=== PATIENT | female | born 1945 | race Caucasian/White ===

== ENCOUNTER 2017-04-11 02:45 | Emergency (ER) | payer MEDICARE, OTHER ==
[~2017-04-11] VITALS: Ht 165.1 cm; Wt 55.9 kg
[2017-04-11] MEDS ORDERED: UNABLE TO RECONCILE (03:11)
[2017-04-11 03:29] LABS: URINE BILIRUBIN - DIPSTICK NEGATIVE (NEGATIVE); URINE BLOOD DIPSTICK SMALL (NEGATIVE); URINE CLARITY CLEAR; URINE COLOR YELLOW; URINE GLUCOSE - DIPSTICK NEGATIVE (NEGATIVE); URINE KETONE NEGATIVE (NEGATIVE); URINE LEUK ESTERASE NEGATIVE (NEGATIVE); URINE NITRITE - DIPSTICK NEGATIVE (Negative); URINE PROTEIN - DIPSTICK NEGATIVE (NEG-TRACE); URINE UROBILINOGEN - DIPSTICK 0.2 E.U./dL (0.2)
[2017-04-11 03:41] LABS: HEMATOCRIT 36.9 % (37.0-47.0); HEMOGLOBIN 12.9 g/dl (12.0-16.0); IMMATURE GRANULOCYTES 0.4 % (0.0-1.0); MEAN CELL VOLUME 91.3 fL CALC (80.0-100.0); MEAN CORPUSCULAR HGB 31.9 pG CALC (26.0-32.0); NEUT# 7.85 thou/uL (2.00-7.15); RED BLOOD COUNT 4.04 mill/uL (4.20-5.60); RED CELL DISTRI WIDTH 12.6 % (11.5-15.5)
[2017-04-11 03:44] LABS: ALBUMIN 4.3 g/dL (3.2-5.0); ALKALINE PHOSPHATASE 103 u/l (38-126); ANION GAP 14 (6-22 (CALC)); BILIRUBIN, TOTAL 0.5 mg/dL (0.0-1.4); BUN 14 mg/dL (8-23); BUN/CREATININE RATIO 20 (12-20 (CALC)); CALCIUM 9.7 mg/dL (8.4-10.2); CARBON DIOXIDE 29 mmol/l (22-30); CHLORIDE 96 mmol/l (95-108); CREATININE 0.7 mg/dL (0.5-1.0); GFR > 60 ML/MIN (>=60 (CALC)); GFR FOR AFR.AMER. > 60 ML/MIN (>=60 (CALC)); GLUCOSE 102 mg/dL (82-115); POTASSIUM 3.6 mmol/l (3.5-5.1); SGOT/AST 22 u/l (9-36); SGPT/ALT 36 u/l (11-66); SODIUM 136 mmol/l (137-146); TOTAL PROTEIN 7.7 g/dL (6.3-8.2)
[2017-04-11 03:45] LABS: URINE WBC 0-2 WBC/hpf (0-5)
[2017-04-11 03:56] LABS: MYOGLOBIN 31 ng/mL (0 - 62)
[2017-04-11] MEDS ORDERED: OXYCODONE5 MG PO (07:07)
[2017-04-11 07:28] VITALS: BP 189/77
== END 2017-04-11 07:29 | disposition home or self-care (01) ==
LOC: ED 02:45
PROVIDERS: Emergency Medicine
DX: G89.29 Other chronic pain (principal); M54.9 Dorsalgia, unspecified; I10 Essential (primary) hypertension; M48.54XA Collapsed vertebra, not elsewhere classified, thoracic region, initial encounter for fracture; Z86.14 Personal history of Methicillin resistant Staphylococcus aureus infection

== ENCOUNTER 2017-04-17 12:31 | Inpatient (IN) | payer MEDICARE, OTHER ==
[~2017-04-17] VITALS: Ht 157.5 cm; Wt 52.0 kg
[~2017-04-17 12:31] MED LIST: OXYCODONE5 MG PO; UNABLE TO RECONCILE
[2017-04-17 13:14] LABS: HEMATOCRIT 32.7 % (37.0-47.0); HEMOGLOBIN 11.7 g/dl (12.0-16.0); IMMATURE GRANULOCYTES 0.3 % (0.0-1.0); MEAN CELL VOLUME 89.1 fL CALC (80.0-100.0); MEAN CORPUSCULAR HGB 31.9 pG CALC (26.0-32.0); MEAN CORPUSCULAR HGB CONC 35.8 g/L CALC (32.0-36.0); NEUT# 7.26 thou/uL (2.00-7.15); RED BLOOD COUNT 3.67 mill/uL (4.20-5.60); RED CELL DISTRI WIDTH 12.2 % (11.5-15.5)
[2017-04-17 13:25] LABS: ALKALINE PHOSPHATASE 91 u/l (38-126); ANION GAP 13 (6-22 (CALC)); BILIRUBIN, TOTAL 0.6 mg/dL (0.0-1.4); BUN 11 mg/dL (8-23); BUN/CREATININE RATIO 18 (12-20 (CALC)); CALCIUM 9.3 mg/dL (8.4-10.2); CARBON DIOXIDE 29 mmol/l (22-30); CHLORIDE 87 mmol/l (95-108); CREATININE 0.6 mg/dL (0.5-1.0); GFR > 60 ML/MIN (>=60 (CALC)); GFR FOR AFR.AMER. > 60 ML/MIN (>=60 (CALC)); GLUCOSE 106 mg/dL (82-115); MAGNESIUM 1.8 mg/dL (1.6-2.3); SGOT/AST 21 u/l (9-36); SGPT/ALT 30 u/l (11-66); SODIUM 125 mmol/l (137-146); TOTAL PROTEIN 7.1 g/dL (6.3-8.2)
[2017-04-17 13:39] LABS: MYOGLOBIN 38 ng/mL (0 - 62)
[2017-04-17 17:07] VITALS: BP 162/52
[2017-04-17 19:00] VITALS: BP 152/59
[2017-04-18 05:43] VITALS: BP 165/69
[2017-04-18 05:54] LABS: HEMATOCRIT 29.3 % (37.0-47.0); HEMOGLOBIN 10.4 g/dl (12.0-16.0); IMMATURE GRANULOCYTES 0.4 % (0.0-1.0); MEAN CELL VOLUME 88.8 fL CALC (80.0-100.0); MEAN CORPUSCULAR HGB 31.5 pG CALC (26.0-32.0); MEAN CORPUSCULAR HGB CONC 35.5 g/L CALC (32.0-36.0); NEUT# 5.78 thou/uL (2.00-7.15); RED BLOOD COUNT 3.3 mill/uL (4.20-5.60)
[2017-04-18 06:04] LABS: ANION GAP 11 (6-22 (CALC)); BUN 10 mg/dL (8-23); BUN/CREATININE RATIO 17 (12-20 (CALC)); CALCIUM 8.6 mg/dL (8.4-10.2); CARBON DIOXIDE 27 mmol/l (22-30); CHLORIDE 93 mmol/l (95-108); CREATININE 0.6 mg/dL (0.5-1.0); GFR > 60 ML/MIN (>=60 (CALC)); GFR FOR AFR.AMER. > 60 ML/MIN (>=60 (CALC)); GLUCOSE 96 mg/dL (82-115); MAGNESIUM 1.7 mg/dL (1.6-2.3); POTASSIUM 3.3 mmol/l (3.5-5.1); SODIUM 128 mmol/l (137-146)
[2017-04-18 07:44] VITALS: BP 179/82
[2017-04-18] MEDS ORDERED: VENLAFAXINE HCL75 M1 PO (09:55)
[2017-04-18] MEDS ORDERED: METOPROLOL TART50 MG PO (09:55)
[2017-04-18] MEDS ORDERED: LABETALOL100 MG PO (09:56)
[2017-04-18] MEDS ORDERED: LYRICA75 MG PO (09:57)
[2017-04-18] MEDS ORDERED: BUSPIRONE HCL30 MG PO (09:57)
[2017-04-18] MEDS ORDERED: DOXYCYCLINE HY100 M1 PO (09:59)
[2017-04-18] MEDS ORDERED: LISINOP/HCTZ1 TA1 PO (10:00)
[2017-04-18] MEDS ORDERED: KLOR-CON 1010 MEQ PO (10:01)
[2017-04-18] MEDS ORDERED: DILT-XR180 MG PO (10:02)
[2017-04-18] MEDS ORDERED: FERR SULFATE325 MG PO (10:02)
[2017-04-18 11:38] VITALS: BP 152/78
[2017-04-18] MEDS ORDERED: OXYCODONE HCL15 MG PO (14:24)
[2017-04-18 15:00] VITALS: BP 190/84
[2017-04-18 16:15] VITALS: BP 187/84
[2017-04-18 16:52] LABS: URINE BILIRUBIN - DIPSTICK NEGATIVE (NEGATIVE); URINE BLOOD DIPSTICK TRACE-INTACT (NEGATIVE); URINE CLARITY CLEAR; URINE COLOR YELLOW; URINE GLUCOSE - DIPSTICK NEGATIVE (NEGATIVE); URINE KETONE NEGATIVE (NEGATIVE); URINE LEUK ESTERASE NEGATIVE (Negative); URINE NITRITE - DIPSTICK NEGATIVE (Negative); URINE PH 7.5 (4.5-8.0); URINE PROTEIN - DIPSTICK NEGATIVE (NEG-TRACE); URINE SPECIFIC GRAVITY 1.015; URINE UROBILINOGEN - DIPSTICK 0.2 E.U./dL (0.2)
[2017-04-18 19:58] VITALS: BP 183/73
[2017-04-19] VITALS (7 sets, daily range): BP systolic 135–188; BP diastolic 68–91
[2017-04-19 05:53] LABS: ALBUMIN 3.2 g/dL (3.2-5.0); BUN 7 mg/dL (8-23); CALCIUM 8.8 mg/dL (8.4-10.2); CARBON DIOXIDE 28 mmol/l (22-30); CHLORIDE 92 mmol/l (95-108); CREATININE 0.4 mg/dL (0.5-1.0); GFR > 60 ML/MIN (>=60 (CALC)); GFR FOR AFR.AMER. > 60 ML/MIN (>=60 (CALC)); GLUCOSE 97 mg/dL (82-115); POTASSIUM 3.2 mmol/l (3.5-5.1); SODIUM 128 mmol/l (137-146)
[2017-04-19] MEDS ORDERED: LISINOPRIL20 M1 PO (12:57)
[2017-04-19] MEDS ORDERED: NORVASC10 M1 PO (12:59)
[2017-04-19] MEDS ORDERED: KLOR-CON 1010 MEQ PO (13:17)
[2017-04-19] MEDS ORDERED: LASIX 20 MG TAB20 MG PO (13:17)
== END 2017-04-19 16:40 | DRG 543 ==
LOC: ED 12:31 → ED-I 15:04 → ED 16:14 → MS2 16:15
PROVIDERS: Emergency Medicine; Internal Medicine Nephrology; Nurse Practitioner Family; ADMIT Internal Medicine; ATTEND Internal Medicine
DX: M80.88XA Other osteoporosis with current pathological fracture, vertebra(e), initial encounter for fracture (principal); E22.2 Syndrome of inappropriate secretion of antidiuretic hormone; D63.8 Anemia in other chronic diseases classified elsewhere; E83.39 Other disorders of phosphorus metabolism; I10 Essential (primary) hypertension; E87.6 Hypokalemia; F17.210 Nicotine dependence, cigarettes, uncomplicated; F32.9 Major depressive disorder, single episode, unspecified; F41.9 Anxiety disorder, unspecified; Z91.14 Patient's other noncompliance with medication regimen
CPT/HCPCS: G0378; J1756

== ENCOUNTER 2017-04-23 19:54 | Emergency (ER) | payer MEDICARE, OTHER ==
[~2017-04-23] VITALS: Ht 157.5 cm; Wt 52.7 kg
[~2017-04-23 19:54] MED LIST changes: +BUSPIRONE HCL30 MG PO; +DILT-XR180 MG PO; +DOXYCYCLINE HY100 M1 PO; +FERR SULFATE325 MG PO; +KLOR-CON 1010 MEQ PO; +LABETALOL100 MG PO; +LASIX 20 MG TAB20 MG PO; +LISINOP/HCTZ1 TA1 PO; +LISINOPRIL20 M1 PO; +LYRICA75 MG PO; +METOPROLOL TART50 MG PO; +NORVASC10 M1 PO; +OXYCODONE HCL15 MG PO; +VENLAFAXINE HCL75 M1 PO
[2017-04-23 21:24] LABS: HEMATOCRIT 33.2 % (37.0-47.0); HEMOGLOBIN 11.8 g/dl (12.0-16.0); IMMATURE GRANULOCYTES 0.6 % (0.0-1.0); MEAN CELL VOLUME 88.3 fL CALC (80.0-100.0); MEAN CORPUSCULAR HGB 31.4 pG CALC (26.0-32.0); MEAN CORPUSCULAR HGB CONC 35.5 g/L CALC (32.0-36.0); NEUT# 5.44 thou/uL (2.00-7.15); RED BLOOD COUNT 3.76 mill/uL (4.20-5.60); RED CELL DISTRI WIDTH 12.3 % (11.5-15.5)
[2017-04-23 21:36] LABS: ALBUMIN 3.2 g/dL (3.2-5.0); ALKALINE PHOSPHATASE 93 u/l (38-126); ANION GAP 12 (6-22 (CALC)); BILIRUBIN, TOTAL 0.4 mg/dL (0.0-1.4); BUN 15 mg/dL (8-23); BUN/CREATININE RATIO 29 (12-20 (CALC)); CALCIUM 9.1 mg/dL (8.4-10.2); CARBON DIOXIDE 26 mmol/l (22-30); CHLORIDE 93 mmol/l (95-108); CREATININE 0.5 mg/dL (0.5-1.0); GFR > 60 ML/MIN (>=60 (CALC)); GFR FOR AFR.AMER. > 60 ML/MIN (>=60 (CALC)); GLUCOSE 95 mg/dL (82-115); POTASSIUM 3.6 mmol/l (3.5-5.1); SGOT/AST 16 u/l (9-36); SGPT/ALT 29 u/l (11-66); SODIUM 128 mmol/l (137-146); TOTAL PROTEIN 5.7 g/dL (6.3-8.2)
[2017-04-23 22:42] LABS: URINE BILIRUBIN - DIPSTICK NEGATIVE (NEGATIVE); URINE BLOOD DIPSTICK TRACE-INTACT (NEGATIVE); URINE CLARITY CLEAR; URINE COLOR YELLOW; URINE GLUCOSE - DIPSTICK NEGATIVE (NEGATIVE); URINE KETONE NEGATIVE (NEGATIVE); URINE LEUK ESTERASE NEGATIVE (NEGATIVE); URINE NITRITE - DIPSTICK NEGATIVE (Negative); URINE PH 6.5 (4.5-8.0); URINE PROTEIN - DIPSTICK TRACE mg/dL (NEG-TRACE); URINE UROBILINOGEN - DIPSTICK 0.2 E.U./dL (0.2)
[2017-04-24 00:55] VITALS: BP 165/85
== END 2017-04-24 04:31 ==
LOC: ED 19:54
PROVIDERS: Emergency Medicine
DX: M48.54XA Collapsed vertebra, not elsewhere classified, thoracic region, initial encounter for fracture (principal); M54.5 Low back pain; M54.6 Pain in thoracic spine

== ENCOUNTER 2017-05-25 10:49 | Emergency (ER) | payer MEDICARE, OTHER ==
[~2017-05-25] VITALS: Ht 157.5 cm; Wt 63.6 kg
[2017-05-25 11:40] LABS: HEMATOCRIT 31.4 % (37.0-47.0); HEMOGLOBIN 10.7 g/dl (12.0-16.0); IMMATURE GRANULOCYTES 0.5 % (0.0-1.0); MEAN CELL VOLUME 93.2 fL CALC (80.0-100.0); MEAN CORPUSCULAR HGB 31.8 pG CALC (26.0-32.0); MEAN CORPUSCULAR HGB CONC 34.1 g/L CALC (32.0-36.0); NEUT# 4.26 thou/uL (2.00-7.15); RED BLOOD COUNT 3.37 mill/uL (4.20-5.60); RED CELL DISTRI WIDTH 14.6 % (11.5-15.5)
[2017-05-25 12:04] LABS: ANION GAP 10 (6-22 (CALC)); BUN 12 mg/dL (8-23); BUN/CREATININE RATIO 22 (12-20 (CALC)); CALCIUM 8.4 mg/dL (8.4-10.2); CARBON DIOXIDE 27 mmol/l (22-30); CHLORIDE 98 mmol/l (95-108); CREATININE 0.5 mg/dL (0.5-1.0); GFR > 60 ML/MIN (>=60 (CALC)); GFR FOR AFR.AMER. > 60 ML/MIN (>=60 (CALC)); GLUCOSE 129 mg/dL (82-115); POTASSIUM 3.1 mmol/l (3.5-5.1); SODIUM 132 mmol/l (137-146)
[2017-05-25] MEDS ORDERED: DILTIAZEM240 MG PO (15:50)
[2017-05-25] MEDS ORDERED: COLACE100 MG PO (15:50)
[2017-05-25] MEDS ORDERED: PEPCID20 MG PO (15:51)
[2017-05-25] MEDS ORDERED: HYDRALAZINE25 MG PO (15:53)
[2017-05-25] MEDS ORDERED: DILAUDID2 MG/ML IJ (15:54)
[2017-05-25] MEDS ORDERED: LIDOCAINE XX (16:24)
[2017-05-25] MEDS ORDERED: LORAZEPAM0.5 MG PO (16:25)
[2017-05-25] MEDS ORDERED: [UNRECOGNIZED DRUG - OTHER] TD (16:26)
[2017-05-25] MEDS ORDERED: MULTIVITAMI1 PO (16:26)
[2017-05-25] MEDS ORDERED: DITROPAN PO (16:27)
[2017-05-25] MEDS ORDERED: BIO-STATIN PO (16:27)
[2017-05-25] MEDS ORDERED: LYRICA50 MG PO (16:28)
[2017-05-25] MEDS ORDERED: VANCOMYCIN1000 MG IJ (16:28)
[2017-05-25] MEDS ORDERED: RIFAMPIN300 MG PO (16:29)
[2017-05-25 17:25] VITALS: BP 152/70
== END 2017-05-25 17:25 | disposition short-term general hospital (02) ==
LOC: ED 10:49 → EDBD 11:24 → ED 11:24
PROVIDERS: Family Medicine
DX: I82.412 Acute embolism and thrombosis of left femoral vein (principal); R53.1 Weakness; I10 Essential (primary) hypertension; E11.9 Type 2 diabetes mellitus without complications; M79.7 Fibromyalgia; F03.90 Unspecified dementia, unspecified severity, without behavioral disturbance, psychotic disturbance, mood disturbance, and anxiety; Z98.890 Other specified postprocedural states

== ENCOUNTER 2017-07-16 16:38 | Emergency (ER) | payer MEDICARE, OTHER ==
[~2017-07-16] VITALS: Ht 157.5 cm; Wt 60.0 kg
[~2017-07-16 16:38] MED LIST changes: +BIO-STATIN PO; +COLACE100 MG PO; +DILAUDID2 MG/ML IJ; +DILTIAZEM240 MG PO; +DITROPAN PO; +HYDRALAZINE25 MG PO; +LIDOCAINE XX; +LORAZEPAM0.5 MG PO; +LYRICA50 MG PO; +MULTIVITAMI1 PO; +NAPROSYN500 MG PO; +PEPCID20 MG PO; +RIFAMPIN300 MG PO; +VANCOMYCIN1000 MG IJ; +[UNRECOGNIZED DRUG - OTHER] TD
[2017-07-16] MEDS ORDERED: ZOFRAN4 MG/TAB PO (17:56)
[2017-07-16 18:00] VITALS: BP 162/72
== END 2017-07-16 18:03 | disposition home or self-care (01) ==
LOC: ED 16:38
DX: I10 Essential (primary) hypertension (principal); R11.0 Nausea; R51 Headache; Z72.0 Tobacco use
CPT/HCPCS: J2060

== ENCOUNTER → 2017-08-29 | Emergency (ER) | payer MEDICARE, OTHER ==
[~2017-08-29] VITALS: Ht 157.5 cm; Wt 54.5 kg
[~2017-08-29] MED LIST changes: +ACIDOPHILU3 PO; +ATIVAN0.5 MG PO; +BISACODYL10 M2; +CLINDAMYCIN HC150 MG PO; +DOCUSATE SOD100 M2 PO; +FAMOTIDINE20 M3 PO; +FENTANYL25 MCG/HR TD; +FENTANYL50 MCG/HR TD; +FERROUS SULF325 M2 PO; +IRON325 M1; +KLOR-CON M1010 MEQ PO; +LASIX 40 MG TAB40 MG PO; +LIDOCARE ARM/NECK4 %; +METOPROLOL50 M1 PO; +MIRALAX3350 N1 PO; +MULTIVITAMI9 PO; +NAPROXEN EC500 MG PO; +NORCO1 TA2 PO; +OXYBUTYNIN5 MG PO; +TAMSULOSIN HCL0.4 MG PO; +VALSARTAN160 MG; +VENLAFAXINE75 MG PO; +ZOFRAN4 MG/TAB PO
[2017-08-29 06:39] VITALS: BP 186/77
== END ==
LOC: ED 00:18
DX: F41.9 Anxiety disorder, unspecified (principal); F32.9 Major depressive disorder, single episode, unspecified; F17.210 Nicotine dependence, cigarettes, uncomplicated

== ENCOUNTER 2017-10-05 14:10 | Inpatient (IN) | payer MEDICARE, OTHER ==
[~2017-10-05] VITALS: Ht 157.5 cm; Wt 60.0 kg
[~2017-10-05 14:10] MED LIST changes: +DILTIAZEM240 M1 PO; +DIOVAN160 MG PO; +DOCQLACE100 MG; +OXYBUTYNIN5 M1 PO; +PROBIOTI2; +TRAMADOL HCL50 MG PO; +VENLAFAXINE75 M2 PO; +XARELTO15 MG PO
[2017-10-05] MEDS ORDERED: XARELTO20 MG PO (15:00)
[2017-10-05] MEDS ORDERED: DOXYCYCLINE100 MG PO (15:02)
[2017-10-05] MEDS ORDERED: ATIVAN1 MG PO (15:04)
[2017-10-05] MEDS ORDERED: HYDRALAZINE HCL25 MG PO (15:04)
[2017-10-05] MEDS ORDERED: MAGNESIUM PO (15:09)
[2017-10-05] MEDS ORDERED: [UNRECOGNIZED DRUG - OTHER] PO (15:09)
[2017-10-05] MEDS ORDERED: ZINC PO (15:09)
[2017-10-05] MEDS ORDERED: [UNRECOGNIZED DRUG - OTHER] (15:10)
[2017-10-05] MEDS ORDERED: BENADRYL ALLERG25 M1 PO (15:12)
[2017-10-08] VITALS (7 sets, daily range): BP systolic 103–138; BP diastolic 47–80
[2017-10-08 15:18] LABS: HEMATOCRIT 25.7 % (37.0-47.0); HEMOGLOBIN 8.7 g/dl (12.0-16.0)
[2017-10-09 00:20] VITALS: BP 141/73
[2017-10-09 04:23] VITALS: BP 137/74
[2017-10-09 05:12] LABS: HEMATOCRIT 20.8 % (37.0-47.0); HEMOGLOBIN 7.1 g/dl (12.0-16.0); IMMATURE GRANULOCYTES 0.3 % (0.0-1.0); MEAN CELL VOLUME 97.7 fL CALC (80.0-100.0); MEAN CORPUSCULAR HGB 33.3 pG CALC (26.0-32.0); MEAN CORPUSCULAR HGB CONC 34.1 g/L CALC (32.0-36.0); NEUT# 5.33 thou/uL (2.00-7.15); RED BLOOD COUNT 2.13 mill/uL (4.20-5.60); RED CELL DISTRI WIDTH 12.8 % (11.5-15.5)
[2017-10-09 05:33] LABS: ANION GAP 10 (6-22 (CALC)); BUN 9 mg/dL (8-23); BUN/CREATININE RATIO 17 (12-20 (CALC)); CARBON DIOXIDE 26 mmol/l (22-30); CHLORIDE 99 mmol/l (95-108); CREATININE 0.5 mg/dL (0.5-1.0); GFR > 60 ML/MIN (>=60 (CALC)); GFR FOR AFR.AMER. > 60 ML/MIN (>=60 (CALC)); MAGNESIUM 1.6 mg/dL (1.6-2.3); POTASSIUM 3.7 mmol/l (3.5-5.1); SODIUM 131 mmol/l (137-146)
[2017-10-09 08:00] VITALS: BP 90/65
[2017-10-09 09:20] LABS: HEMATOCRIT 21.5 % (37.0-47.0); HEMOGLOBIN 7.3 g/dl (12.0-16.0)
[2017-10-09 11:32] VITALS: BP 150/68
[2017-10-09 15:17] VITALS: BP 145/65
[2017-10-09 16:07] LABS: URINE BILIRUBIN - DIPSTICK NEGATIVE (NEGATIVE); URINE BLOOD DIPSTICK TRACE-LYSED (NEGATIVE); URINE CLARITY CLEAR; URINE COLOR YELLOW; URINE GLUCOSE - DIPSTICK NEGATIVE (NEGATIVE); URINE KETONE NEGATIVE (NEGATIVE); URINE LEUK ESTERASE NEGATIVE (NEGATIVE); URINE NITRITE - DIPSTICK NEGATIVE (Negative); URINE PROTEIN - DIPSTICK NEGATIVE (NEG-TRACE); URINE SPECIFIC GRAVITY 1.025; URINE UROBILINOGEN - DIPSTICK 0.2 E.U./dL (0.2)
[2017-10-09 19:00] VITALS: BP 88/51
[2017-10-10] VITALS (12 sets, daily range): BP systolic 94–161; BP diastolic 49–76
[2017-10-10 04:56] LABS: IMMATURE GRANULOCYTES 0.4 % (0.0-1.0); MEAN CELL VOLUME 96.2 fL CALC (80.0-100.0); MEAN CORPUSCULAR HGB CONC 35.3 g/L CALC (32.0-36.0); NEUT# 5.82 thou/uL (2.00-7.15); RED BLOOD COUNT 1.59 mill/uL (4.20-5.60); RED CELL DISTRI WIDTH 12.9 % (11.5-15.5)
[2017-10-10 05:33] LABS: HEMATOCRIT 15.3 % (37.0-47.0); HEMOGLOBIN 5.4 g/dl (12.0-16.0)
[2017-10-10 05:37] LABS: ANION GAP 11 (6-22 (CALC)); BUN 12 mg/dL (8-23); BUN/CREATININE RATIO 18 (12-20 (CALC)); CARBON DIOXIDE 26 mmol/l (22-30); CHLORIDE 95 mmol/l (95-108); CREATININE 0.7 mg/dL (0.5-1.0); GFR > 60 ML/MIN (>=60 (CALC)); GFR FOR AFR.AMER. > 60 ML/MIN (>=60 (CALC)); MAGNESIUM 1.6 mg/dL (1.6-2.3); POTASSIUM 3.8 mmol/l (3.5-5.1); SODIUM 128 mmol/l (137-146)
[2017-10-11 04:15] VITALS: BP 137/66
[2017-10-11 07:28] VITALS: BP 147/81
[2017-10-11 07:38] LABS: IMMATURE GRANULOCYTES 0.5 % (0.0-1.0); MEAN CORPUSCULAR HGB 31.7 pG CALC (26.0-32.0); MEAN CORPUSCULAR HGB CONC 35.4 g/L CALC (32.0-36.0); NEUT# 6.43 thou/uL (2.00-7.15); RED BLOOD COUNT 2.52 mill/uL (4.20-5.60); RED CELL DISTRI WIDTH 15.4 % (11.5-15.5)
[2017-10-11 07:39] LABS: HEMATOCRIT 22.6 % (37.0-47.0); MEAN CELL VOLUME 89.7 fL CALC (80.0-100.0)
[2017-10-11 09:05] LABS: ANION GAP 13 (6-22 (CALC)); BUN 10 mg/dL (8-23); BUN/CREATININE RATIO 17 (12-20 (CALC)); CARBON DIOXIDE 25 mmol/l (22-30); CHLORIDE 96 mmol/l (95-108); CREATININE 0.6 mg/dL (0.5-1.0); GFR > 60 ML/MIN (>=60 (CALC)); GFR FOR AFR.AMER. > 60 ML/MIN (>=60 (CALC)); POTASSIUM 3.1 mmol/l (3.5-5.1); SODIUM 130 mmol/l (137-146)
[2017-10-11] MEDS ORDERED: DILAUDID2 MG PO (11:31)
[2017-10-11 14:05] VITALS: BP 147/81
[2017-10-11] MEDS ORDERED: AUGMENTIN875TAB PO (19:23)
[2017-10-23] MEDS ORDERED: DOXYCYCL HYC100 MG PO (12:14)
[2017-10-23] MEDS ORDERED: PERFECT IRON25 MG (12:15)
[2017-10-23] MEDS ORDERED: FENTANYL25 MCG/HR TD (12:35)
[2017-10-23] MEDS ORDERED: TRAMADOL HCL50 MG PO (12:36)
== END 2017-10-11 15:38 | disposition home health service (06) | DRG 469 ==
LOC: MS2 10-08 07:17
PROVIDERS: Nurse Practitioner Family; ADMIT Orthopaedic Surgery; ATTEND Internal Medicine
PROC: 0SRB04A Replacement of Left Hip Joint with Ceramic on Polyethylene Synthetic Substitute, Uncemented, Open Approach (ICD-10-PCS; principal; 2017-10-08)
PROC: 0QH704Z Insertion of Internal Fixation Device into Left Upper Femur, Open Approach (ICD-10-PCS; 2017-10-08)
PROC: 30233N1 Transfusion of Nonautologous Red Blood Cells into Peripheral Vein, Percutaneous Approach (ICD-10-PCS; 2017-10-10)
PROC: 30233N1 Transfusion of Nonautologous Red Blood Cells into Peripheral Vein, Percutaneous Approach (ICD-10-PCS; 2017-10-10)
DX: M16.12 Unilateral primary osteoarthritis, left hip (principal); J18.9 Pneumonia, unspecified organism; S72.002A Fracture of unspecified part of neck of left femur, initial encounter for closed fracture; I48.2 Chronic atrial fibrillation; M41.9 Scoliosis, unspecified; M96.662 Fracture of femur following insertion of orthopedic implant, joint prosthesis, or bone plate, left leg; D62 Acute posthemorrhagic anemia; F33.8 Other recurrent depressive disorders; F17.210 Nicotine dependence, cigarettes, uncomplicated; I10 Essential (primary) hypertension; G89.4 Chronic pain syndrome; H91.90 Unspecified hearing loss, unspecified ear; G89.18 Other acute postprocedural pain; E87.6 Hypokalemia; Z79.01 Long term (current) use of anticoagulants; Z86.718 Personal history of other venous thrombosis and embolism; Z01.818 Encounter for other preprocedural examination; Z91.09 Other allergy status, other than to drugs and biological substances; Z97.2 Presence of dental prosthetic device (complete) (partial); H91.8X9 Other specified hearing loss, unspecified ear; R32 Unspecified urinary incontinence
CPT/HCPCS: J2710; P9016

== ENCOUNTER 2017-10-26 12:17 | Inpatient (IN) | payer MEDICARE, OTHER ==
[~2017-10-26] VITALS: Ht 157.5 cm; Wt 52.1 kg
[~2017-10-26 12:17] MED LIST changes: +ATIVAN1 MG PO; +AUGMENTIN875TAB PO; +BENADRYL ALLERG25 M1 PO; +DILAUDID2 MG PO; -DOCQLACE100 MG; +DOCQLACE100 MG PO; +DOXYCYCL HYC100 MG PO; +DOXYCYCLINE100 MG PO; +HYDRALAZINE HCL25 MG PO; +MAGNESIUM PO; +PERFECT IRON25 MG; +XARELTO20 MG PO; +ZINC PO; +[UNRECOGNIZED DRUG - OTHER]; +[UNRECOGNIZED DRUG - OTHER] PO
--- NOTE | 2017-10-26 12:19 | NUR ---
PATIENT TO ROOM VIA EMS STRETCHER, ALERT AND ORIENTED.
--- NOTE | 2017-10-26 12:33 | NUR ---
REPORTS HIP WITH MOVEMENT TO LEFT HIP, DENIES INJURY OR FALL. STRONG PEDAL PULSES BILATERALLY. +1 TIBIAL EDEMA TO LEFT LOWER EXTREMITY. NO SWELLING OR REDNESS NOTED TO LEFT HIP.
--- NOTE | 2017-10-26 12:35 | NUR ---
PATIENT HAS TWO 50 MG FENTANYL PATCHES TO RIGHT THIGH. REPORTS HAVING SECOND ONE PLACE TO BY DAUGHTER FOR PAIN.
[2017-10-26] MEDS ORDERED: TRAMADOL HCL50 MG PO (12:51)
[2017-10-26] MEDS ORDERED: XARELTO10 MG PO (12:52)
[2017-10-26] MEDS ORDERED: MAGNESIUM 400 M1 TAB PO (12:53)
[2017-10-26] MEDS ORDERED: DIOVAN160 MG PO (12:55)
[2017-10-26] MEDS ORDERED: NAPROXEN250 MG PO (12:56)
[2017-10-26] MEDS ORDERED: FERR SULFATE325 MG PO (12:59)
[2017-10-26] MEDS ORDERED: LIDOCAINE51 TOP (13:00)
[2017-10-26] MEDS ORDERED: ATIVAN1 MG PO (13:04)
--- NOTE | 2017-10-26 13:34 | NUR ---
PATIENT RETURNS FROM RADIOLOGY DEPARTMENT IN STABLE CONDITION. ALERT AND ORIENTED X3.
--- NOTE | 2017-10-26 14:00 | NUR ---
IV INITIATED AND LABS COLLECTED. PT REFUSED KENNY CATHETER STATING "I WAS TOLD NOT TO HAVE ONE OF THOSE PUT IN SO I DO NOT GET AN IFECTION". PT EXPLAINED OF STERILE PROCEDURE OF CATHETER BEING PLACED, PT CONTINUES TO REFUSE. NOTIFIED.
--- NOTE | 2017-10-26 14:06 | NUR ---
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 CALL LIGHT GIVEN, ASKED TO CALL FOR ASSISTANCE.
--- NOTE | 2017-10-26 14:10 | NUR ---
ERON spoke with regarding admission status. ERON advised the patient will meet IP citeria d/t the new fracture over the recently implanted hip prosthesis. voiced agrement of IP admission.
[2017-10-26 14:13] LABS: HEMATOCRIT 27.4 % (37.0-47.0); HEMOGLOBIN 9.1 g/dl (12.0-16.0); IMMATURE GRANULOCYTES 0.8 % (0.0-1.0); MEAN CELL VOLUME 94.2 fL CALC (80.0-100.0); MEAN CORPUSCULAR HGB 31.3 pG CALC (26.0-32.0); MEAN CORPUSCULAR HGB CONC 33.2 g/L CALC (32.0-36.0); NEUT# 4.85 thou/uL (2.00-7.15); RED BLOOD COUNT 2.91 mill/uL (4.20-5.60); RED CELL DISTRI WIDTH 14.9 % (11.5-15.5)
--- NOTE | 2017-10-26 14:15 | NUR ---
100 ML OF YELLOW URINE EMPTIED.
--- NOTE | 2017-10-26 14:21 | NUR ---
ERON spoke with Dr. Taylor as requested regarding placing the patient directly to rehab as requested same d/t no need of emergent surgery. CM advised the placement will be adressed right away.
--- NOTE | 2017-10-26 14:23 | NUR ---
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 INFORMED OF NPO STATUS UNTIL FURTHER NOTICE. VERBAL UNDERSTANDING.
[2017-10-26 14:28] LABS: ALBUMIN 3.3 g/dL (3.2-5.0); ALKALINE PHOSPHATASE 145 u/l (38-126); BILIRUBIN, TOTAL 0.3 mg/dL (0.0-1.4); BUN 14 mg/dL (8-23); BUN/CREATININE RATIO 27 (12-20 (CALC)); CARBON DIOXIDE 27 mmol/l (22-30); CHLORIDE 94 mmol/l (95-108); CREATININE 0.5 mg/dL (0.5-1.0); GFR > 60 ML/MIN (>=60 (CALC)); GFR FOR AFR.AMER. > 60 ML/MIN (>=60 (CALC)); SGPT/ALT 33 u/l (11-66); SODIUM 128 mmol/l (137-146); TOTAL PROTEIN 6.3 g/dL (6.3-8.2)
[2017-10-26 14:31] LABS: ANION GAP 11 (6-22 (CALC)); POTASSIUM 4.3 mmol/l (3.5-5.1); SGOT/AST 26 u/l (9-36)
--- NOTE | 2017-10-26 14:52 | NUR ---
PATIENT IN ROOM CRYING OUT, NON-TEARFUL. REQUESTING PAIN MEDICATION. MEDICATED WITH 2 MG OF MORPHINE IV. AGREES TO KENNY PLACEMENT.
--- NOTE | 2017-10-26 15:01 | NUR ---
PATIENT TOLERATED KENNY INSERTION WELL. 100 ML OF CLEAR YELLOW URINE OUT. WILL CONTINUE TO MONITOR.
[2017-10-26 15:03] LABS: URINE BILIRUBIN - DIPSTICK NEGATIVE (NEGATIVE); URINE BLOOD DIPSTICK NEGATIVE (NEGATIVE); URINE COLOR YELLOW; URINE GLUCOSE - DIPSTICK NEGATIVE (NEGATIVE); URINE KETONE NEGATIVE (NEGATIVE); URINE LEUK ESTERASE NEGATIVE (NEGATIVE); URINE NITRITE - DIPSTICK NEGATIVE (Negative); URINE PROTEIN - DIPSTICK NEGATIVE (NEG-TRACE); URINE UROBILINOGEN - DIPSTICK 0.2 E.U./dL (0.2)
[2017-10-26 15:08] LABS: URINE CLARITY CLEAR
--- NOTE | 2017-10-26 15:23 | NUR ---
AT BEDSIDE TO SPEAK TO PT.
--- NOTE | 2017-10-26 15:46 | NUR ---
DRINK AND CRACKERS PROVIDED PER PT REQUEST. PT REPORTS PAIN IS NOW 6/10 AND IS FEELING MUCH BETTER. CALL MARINO WITHIN REACH.
--- NOTE | 2017-10-26 15:56 | NUR ---
REPORT GIVEN TO AMADEO ADKINS.
--- NOTE | 2017-10-26 16:04 | NUR ---
PT CAME FROM ER VIA STRETCHER BY AMADEO ORDOÑEZ. X3 PERSON ASSIST PT TO TRANFER FROM STRETCHER TO BED. SAFETY PRECAUTIONS REINFORCED AND CALL LIGHT IN REACH.
--- NOTE | 2017-10-26 16:05 | NUR ---
PATIENT TRANSPORTED TO [facility] VIA STRETCHER. BEDSIDE REPORT GIVEN TO AMADEO ADKINS. CARE RELINQUISHED.
--- NOTE | 2017-10-26 16:30 | NUR ---
ASSESSMENT DONE. RESPS EVEN AND UNALBORED. #22 RFA THAT APPEARS HEALTHY. KENNY IS PATENT WITH YELLOW URINE. PT HAS REDNESS IN BUTTOCK AND LEFT SIDE HIP INCISION THAT IS HEALING WELL FROM THREE WEEK AGO. CALL LIGHT IN REACH.
[2017-10-26 16:33] VITALS: BP 132/59
--- NOTE | 2017-10-26 19:30 | NUR ---
PT RESTING IN BED WATCHING TV. RESP EVEN AND UNLABORED.LUNGS CLEAR BILAT. ABD SOFT; ACTIVE BOWEL SOUNDS NOTED. NO S&S OF INFECTION OF LEFT HIP. TRACE ANKLE EDEMA LEFT ANKLE. FENTANYL PATCH ON LEFT THIGH. PEDAL PULSES PALPATED BILAT. IV RFA PATENT; FLUSHED WITHOUT DIFFICULTY. KENNY PATENT;DRAINING YELLOW URINE. SAFETY PRECAUTIONS REINFORCED. FREQUENT ROUNDS MADE; CALL LIGHT WITHIN REACH.
[2017-10-26 19:50] VITALS: BP 115/74
--- NOTE | 2017-10-27 00:30 | NUR ---
PT APPEARS TO BE SLEEPING WITH EYES CLOSED. RESP EVEN AND UNLABORED. KENNY PATENT; DRAINING YELLOW URINE. CALL LIGHT WITHIN REACH.
[2017-10-27 03:35] VITALS: BP 139/44
--- NOTE | 2017-10-27 04:47 | NUR ---
ASSESSMENT UNCHANGED; RESP EVEN AND UNLABORED. KENNY PATENT; DRAINING YELLOW URINE. PEDAL PULSES PALPATED BILAT. CALL LIGHT WITHIN REACH.
[2017-10-27 05:22] LABS: HEMATOCRIT 24.2 % (37.0-47.0); HEMOGLOBIN 8.1 g/dl (12.0-16.0); IMMATURE GRANULOCYTES 0.7 % (0.0-1.0); MEAN CELL VOLUME 95.3 fL CALC (80.0-100.0); MEAN CORPUSCULAR HGB 31.9 pG CALC (26.0-32.0); MEAN CORPUSCULAR HGB CONC 33.5 g/L CALC (32.0-36.0); NEUT# 3.11 thou/uL (2.00-7.15); RED BLOOD COUNT 2.54 mill/uL (4.20-5.60); RED CELL DISTRI WIDTH 15.1 % (11.5-15.5)
[2017-10-27 05:37] LABS: ALKALINE PHOSPHATASE 118 u/l (38-126); ANION GAP 10 (6-22 (CALC)); BILIRUBIN, TOTAL 0.2 mg/dL (0.0-1.4); BUN 12 mg/dL (8-23); BUN/CREATININE RATIO 24 (12-20 (CALC)); CARBON DIOXIDE 27 mmol/l (22-30); CHLORIDE 98 mmol/l (95-108); CREATININE 0.5 mg/dL (0.5-1.0); GFR > 60 ML/MIN (>=60 (CALC)); GFR FOR AFR.AMER. > 60 ML/MIN (>=60 (CALC)); POTASSIUM 4.5 mmol/l (3.5-5.1); SGOT/AST 14 u/l (9-36); SGPT/ALT 32 u/l (11-66); SODIUM 131 mmol/l (137-146)
[2017-10-27 05:39] LABS: ALBUMIN 2.5 g/dL (3.2-5.0); TOTAL PROTEIN 4.8 g/dL (6.3-8.2)
--- NOTE | 2017-10-27 07:00 | NUR ---
REPORT RECEIVED FROM LICHA LUJAN;PT RESTING IN SEMI FOWLERS POSITION;CONTACT PRECAUTIONS IN PLACE FOR HX OF MRSA;INTRODUCED SELF TO PT AND POC DISCUSSED;PT ENCOURAGED TO EXPRESS CONCERNS AND NEEDS;PT REQUESTS PAIN MEDICATION FOR LEFT HIP PAIN AND IS RE-EDUCATED ON PAIN MEDICATION SCALE,PT VERBALIZES UNDERSTANDING;FALL PRECAUTIONS IN PLACE WITH BED IN THE LOWEST POSITION;CALL LIGHT IN REACH;WILL CONTINUE TO MONITOR
[2017-10-27 09:42] VITALS: BP 149/65
--- NOTE | 2017-10-27 09:50 | NUR ---
PT RESTING IN SEMI FOWLERS POSITION WITH EYES CLOSED,WAKES TO VERBAL STIMULI;VS OBTAINED AND ASSESSMENT COMPLETED;RESPIRATIONS EVEN AND UNLABORED ON RA,CLEAR LUNG SOUNDS;ABDOMEN SOFT ON PALPATION AND ACTIVE IN ALL 4 QUADRANTS;STRONG PEDAL PULSES NOTED BILATERALLY;TRACE EDEMA NOTED TO LEFT ANKLE;KENNY CATHETER PATENT DRAINING CLEAR/YELLOW URINE,LEG STRAP IN PLACE;DURAGESIC 25MCG PATCH TO LEFT THIGH;#22G TO LEFT FOREARM FLUSHED AND PATENT,SITE APPEARS HEALTHY;CONTACT PRECAUTIONS REMAIN IN PLACE FOR HX OF MRSA;PT COMPLAINS OF LEFT HIP PAIN RATING 6/10 ON THE PAIN SCALE AND REQUESTS PAIN MEDICATION;PT RE-EDUCATED AGAIN ON PAIN MEDICATION SCHEDULED;SAFETY PRECAUTIONS REINFORCED WITH BED IN THE LOWEST POSITION;CALL LIGHT IN REACH;WILL CONTINUE TO MONITOR
--- NOTE | 2017-10-27 12:00 | NUR ---
PT COMPLAINS OF LEFT HIP PAIN RATING 8/10 ON THE PAIN SCALE AND REQUESTS PAIN MEDICATION;PT MEDICATED WITH PRN ULTRAM 50MG PO,WILL CONTINUE TO MONITOR FOR EFFECT;RESPIRATIONS REMAIN EVEN AND UNLABORED ON RA;KENNY CATHETER PATENT;ALL SAFETY PRECAUTIONS REINFORCED;CALL LIGHT IN REACH;WILL CONTINUE TO MONITOR
[2017-10-27 15:22] VITALS: BP 112/62
--- NOTE | 2017-10-27 17:10 | NUR ---
PT RE-POSITIONED TO RIGHT SIDE LAYING POSITION;KENNY CATHETER PATENT DRAINING CLEAR/YELLOW URINE;IV SITE PATENT;PT COMPLAINS OF LEFT HIP PAIN BUT IS RE-EDUCATED ON PAIN MEDICATION SCALE;RESPIRATIONS EVEN AND UNLABORED;PT ENCOURAGED TO CALL FOR ASSISTANCE IF NEEDED;FALL PRECAUTIONS IN PLACE;CALL LIGHT IN REACH;WILL CONTINUE TO MONITOR
[2017-10-27 19:26] VITALS: BP 115/62
--- NOTE | 2017-10-27 20:00 | NUR ---
PATIENT RESTING IN BED AT THIS TIME-AWAKE ALERT AND ORIENTEDX3 VERBALIZING MANY NEEDS. PATIENT MEDICATED WITH ULTRAM 50MG PO FOR LEFT HIP PAIN 7/10 ON PAIN SCALE. PATIENT IS ON CONTACT PRECAUTIONS FOR HX OF MRSA. KENNY CATH PATENT AND DRAINING YELLOW URINE. TRACE EDEMA TO LLE. HEP LOCK TO RIGHT FOREARM INTACT AND APPEARS HEALTHY AT THIS TIME. SAFETY PRECAUTIONS REINFORCED. CALL LIGHT IN REACH. WILL CONT TO MONITOR.
--- NOTE | 2017-10-27 20:00 | NUR ---
PATIENT RESTING IN BED AT THIS TIME-AWAKE ALERT AND ORIENTEDX3 VERBALIZING MANY NEEDS. PATIENT MEDICATED WITH ULTRAM 50MG PO FOR LEFT HIP PAIN 7/10 ON PAIN SCALE. PATIENT IS ON CONTACT PRECAUTIONS FOR HX OF MRSA. KENNY CATH PATENT AND DRAINING YELLOW URINE. TRACE EDEMA TO LLE. HEP LOCK TO LEFT ARM INTACT AND APPEARS HEALTHY AT THIS TIME. CALL LIGHT IN REACH. WILL CONT TO MONITOR.
--- NOTE | 2017-10-27 21:30 | NUR ---
PATIENT GIVEN COMPLETE BED BATH WITH ASSIST. LINENS WERE CHANGED. PATIENT WAS TURNED AND REPOSITIONED. KENNY CATH CARE WAS DONE. WHILE DOING BATH MARBLE INSTALLER SUPERVISOR FOUND 5 WHITE OBLONG PILLS ON THE FLOOR AROUND THE BED. FENTYNL PATCH WAS ALSO FOUND OFF-PATIENT STATES THAT IT FELL OFF. REAPPLIED THE FENTYNL PATCH TO LEFT THIGH AND SECURED WITH TAPE. PATIENT STATES THAT SHE WAS TRYING TO THROW PILLS AWAY BECAUSE SHE KNEW THAT SHE SHOULDN'T HAVE THEM. PILLS WERE TAKEN AND MATCHED THE ACETOMENOPHEN/ASA TABLET THAT WERE TAKEN FROM THE PATIENT EARLIER. PLACED IN SECURITY ALONG WITH E-CIG THAT WAS FOUND IN TISSUE BOX. ATTEMPTED TO EDUCATE THAT SHE MAY NOT HAVE HER OWN MEDS OR E-CIG WHILE IN HOSPITAL. VERBALIZED THAT SHE UNDERSTOOD. CALL LIGHT IN REACH. WILL CONT TO MONITOR.
--- NOTE | 2017-10-28 | NUR ---
PATIENT APPEARS SLEEPING WITH HOB ELEVATED. CALL LIGHT IN REACH. WILL CONT TO MONITOR.
--- NOTE | 2017-10-28 03:50 | NUR ---
PATIENT APPEARS SLEEPING AT THIS TIME. KENNY CATH PATENT AND DRAINING YELLOW URINE. CALL LIGHT IN REACH. WILL CONT TO MONITOR.
[2017-10-28 04:25] VITALS: BP 137/83
--- NOTE | 2017-10-28 04:54 | NUR ---
PATIENT RESTING IN BED C/O LEFT HIP PAIN 8/10 ON PAIN SCALE. MEDICATED WITH ULTRAM 50MG PO FOR PAIN. REINFORCED WITH PATIENT THAT SHE MUST NOT HAVE ANY MEDICATIONS FROM OUTSIDE THE HOSPITAL WHILE SHE IS IN THE HOSPITAL. STATES THAT SHE WAS GOING TO GIVE THEM TO STAFF BUT FORGOT. CALL LIGHT IN REACH. WILL CONT TO MONITOR.
[2017-10-28 05:18] LABS: HEMATOCRIT 24.4 % (37.0-47.0); HEMOGLOBIN 8.1 g/dl (12.0-16.0); MEAN CELL VOLUME 94.6 fL CALC (80.0-100.0); MEAN CORPUSCULAR HGB 31.4 pG CALC (26.0-32.0); MEAN CORPUSCULAR HGB CONC 33.2 g/L CALC (32.0-36.0); RED BLOOD COUNT 2.58 mill/uL (4.20-5.60); RED CELL DISTRI WIDTH 14.8 % (11.5-15.5)
[2017-10-28 05:36] LABS: ANION GAP 10 (6-22 (CALC)); BUN 12 mg/dL (8-23); BUN/CREATININE RATIO 23 (12-20 (CALC)); CARBON DIOXIDE 27 mmol/l (22-30); CHLORIDE 96 mmol/l (95-108); CREATININE 0.5 mg/dL (0.5-1.0); GFR > 60 ML/MIN (>=60 (CALC)); GFR FOR AFR.AMER. > 60 ML/MIN (>=60 (CALC)); POTASSIUM 4.4 mmol/l (3.5-5.1); SODIUM 129 mmol/l (137-146)
[2017-10-28 07:50] VITALS: BP 136/74
--- NOTE | 2017-10-28 07:50 | NUR ---
PT IS RELAXING IN BED WITH N O DISTRESS NOTED. IV SITE IS FREE FROM REDNESS OR EDEMA. HR IS REG, PULSES ARE STRONG X4, ABD IS SOFT WITH ACTIVE BS. CONTINUE TO OBSERVE AND MONITOR.
--- NOTE | 2017-10-28 12:00 | NUR ---
PT IS RELAXING IN BED WITH NO DISTRESS NOTED. IV SITE IS FREE FROM REDNESS OR EDEMA. KENNY INTACT DRAINING YELLOW URINE. PT C/O "WANTING TO GO HOME IF ALL I AM GOING TO DO IS SIT HERE". CONTINUE TO OBSERVE AND MONITOR.
[2017-10-28 16:00] VITALS: BP 109/58
--- NOTE | 2017-10-28 16:00 | NUR ---
PT IS RELAXING IN BED WITH NO DISTRESS NOTED. IV SITE IS FREE FROM REDNESS OR EDEMA. PT C/O "BUTT HURTING, WILL PLACE CREAM ON IT". CONTINUE TO OBSERVE AND MONITOR.
--- NOTE | 2017-10-28 18:50 | NUR ---
KENNY IS ACTING LIKE IT IS LEAKING., PLACED EXTRA 10CC OF FLUID IN BALLOON AFTER ADVANCING. PT TOLERATED WELL.
[2017-10-28 19:25] VITALS: BP 125/71
--- NOTE | 2017-10-28 19:52 | NUR ---
PATIENT RESTING IN BED AT THIS TIME-AWAKE ALERT AND ORIENTEDX3. PATIENT C/O BLADDER SPASMS THAT COME AND GO-KENNY CATH PATENT AND DRAINING YELLOW URINE AT THIS TIME. NO SPASMS AT THIS TIME. HEP LOCK TO LEFT FOREARM-SITE APPEARS HEALTHY AT THIS TIME. CALL LIGHT IN REACH. WILL CONT TO MONITOR.
--- NOTE | 2017-10-28 21:15 | NUR ---
PATIENT RESTING IN BED-MEDICATED FOR LEFT HIP PAIN 6/10 ON PAIN SCALE WITH LORTAB 5/325MG PO. NO FURTHER C/O BLADDER SPASM. SAFETY PRECAUTIONS REINFORCED. CALL LIGHT IN REACH. WILL CONT TO MONITOR.
--- NOTE | 2017-10-28 23:59 | NUR ---
PATIENT SLEEPING AT THIS TIME WITH HOB ELEVATED AND EYES CLOSED. RESP ARE EVEN AND UNLABORED. CALL LIGHT IN REACH. WILL CONT TO MONITOR.
--- NOTE | 2017-10-29 04:00 | NUR ---
PATIENT RESTING IN BED-APPEARS SLEEPING WITH EYES CLOSED AND HOB ELEVATED. KENNY PATENT AND DRAING YELLOW URINE. HEP LOCK TO RIGHT FOREARM INTACT. REMAINS NPO FOR POSS OR THIS MORNING. OR PACKET INITIATED. CALL LIGHT IN REACH. WILL CONT TO MONITOR.
[2017-10-29 04:25] VITALS: BP 125/67
[2017-10-29 05:21] LABS: HEMATOCRIT 27.1 % (37.0-47.0); HEMOGLOBIN 8.6 g/dl (12.0-16.0); IMMATURE GRANULOCYTES 0.6 % (0.0-1.0); MEAN CELL VOLUME 99.6 fL CALC (80.0-100.0); MEAN CORPUSCULAR HGB 31.6 pG CALC (26.0-32.0); MEAN CORPUSCULAR HGB CONC 31.7 g/L CALC (32.0-36.0); NEUT# 3.57 thou/uL (2.00-7.15); RED BLOOD COUNT 2.72 mill/uL (4.20-5.60); RED CELL DISTRI WIDTH 15.2 % (11.5-15.5)
[2017-10-29 05:44] LABS: ANION GAP 10 (6-22 (CALC)); BUN 14 mg/dL (8-23); BUN/CREATININE RATIO 24 (12-20 (CALC)); CARBON DIOXIDE 30 mmol/l (22-30); CHLORIDE 94 mmol/l (95-108); CREATININE 0.6 mg/dL (0.5-1.0); GFR > 60 ML/MIN (>=60 (CALC)); GFR FOR AFR.AMER. > 60 ML/MIN (>=60 (CALC)); MAGNESIUM 1.8 mg/dL (1.6-2.3); POTASSIUM 4.3 mmol/l (3.5-5.1); SODIUM 129 mmol/l (137-146)
--- NOTE | 2017-10-29 06:17 | NUR ---
KENNY CATH IS LEAKING AND WAS REMOVED. #[id number] KENNY CATH INSERTED WITH YELLOW URINE RETURNS. PATIENT NPO FOR POSS SURGERY TODAY. CALL LIGHT IN REACH. WILL CONT TO MONITOR.
[2017-10-29 06:37] LABS: URINE BILIRUBIN - DIPSTICK NEGATIVE (NEGATIVE); URINE BLOOD DIPSTICK TRACE-INTACT (NEGATIVE); URINE COLOR YELLOW; URINE GLUCOSE - DIPSTICK NEGATIVE (NEGATIVE); URINE KETONE NEGATIVE (NEGATIVE); URINE NITRITE - DIPSTICK NEGATIVE (Negative); URINE PH 8.5 (4.5-8.0); URINE PROTEIN - DIPSTICK NEGATIVE (NEG-TRACE); URINE UROBILINOGEN - DIPSTICK 0.2 E.U./dL (0.2)
[2017-10-29 06:39] LABS: URINE CLARITY SL CLOUDY; URINE LEUK ESTERASE SMALL (NEGATIVE)
[2017-10-29 06:46] LABS: URINE BACTERIA MANY hpf; URINE RBC 0-2 RBC/hpf (0-5); URINE WBC 20-50 WBC/hpf (0-5)
--- NOTE | 2017-10-29 07:00 | NUR ---
RECEIVED BEDSIDE REPORT FROM DAVID CHILDS. RESTING IN SEMI FOWLERS WITH EYES CLOSED, AWAKENS EASILY. RESPS EVEN AND UNLABORED ON ROOM AIR. KENNY PATENT, DRAINING CLEAR YELLOW URINE TO GRAVITY, STRAP TO UPPER RIGHT LEG. DENIES PAIN OR DISCOMFORT. PLAN OF CARE DISCUSSED. SAFETY PRECAUTIONS REINFORCED. BED IN LOWEST POSITION WITH WHEELS LOCKED. CALL LIGHT WITHIN REACH. ENCOURAGED PT TO CALL FOR ANY NEEDS.
--- NOTE | 2017-10-29 07:50 | NUR ---
PHONE CALL RECEIVED FROM DR VERAS, NEW ORDERS RECEIVED. TOE TOUCH WEIGHT BEARING. POSSIBLE REHAB PLACEMENT.
--- NOTE | 2017-10-29 08:50 | NUR ---
PHYSICAL THERAPY IN WITH PT.
[2017-10-29 09:26] VITALS: BP 141/51
--- NOTE | 2017-10-29 10:10 | NUR ---
IN SEMI FOWLERS. RESPS EVEN AND UNLABORED ON ROOM AIR. MEDICATED WITH LORTAB PO FOR C/O 01/08 LEFT HIP PAIN. REPOSITIONED FOR COMFORT. CALL LIGHT WITHIN REACH. WILL CONTINUE TO MONTIOR.
--- NOTE | 2017-10-29 12:35 | NUR ---
DR HANCOCK AT BEDSIDE, NEW ORDERS RECEIVED.
--- NOTE | 2017-10-29 14:10 | NUR ---
KENNY REMOVED PER MD ORDER. PT TOLERATED WITHOUT DIFFICULTY. PT INSTRUCTED TO CALL FOR ASSISTANCE WITH URGE TO VOID. CALL LIGHT WITHIN REACH. WILL CONTINUE TO MONITOR.
[2017-10-29 15:38] VITALS: BP 102/59
--- NOTE | 2017-10-29 15:51 | NUR ---
RESTING IN SEMI FOWLERS, RESPS EVEN AND UNLABORED ON ROOM AIR. MEDICATED WITH LORTAB PO FOR C/O 6 LEFT HIP PAIN. CALL LIGHT WITHIN REACH. WILL CONTINUE TO MONITOR.
[2017-10-29 18:00] VITALS: BP 110/63
--- NOTE | 2017-10-29 19:14 | NUR ---
PATIENT RESTING IN BED AT THIS TIME-AWAKE ALERT AND ORIENTEDX3. HEP LOCK TO RIGHT FOREARM INTACT AND APPEARS HEALTHY AT THIS TIME. SAFETY PRECAUTIONS REINFORCED. CALL LIGHT IN REACH. WILL CONT TO MONITOR.
--- NOTE | 2017-10-30 00:04 | NUR ---
PATIENT CALLED AND ASSISTED TO BSC TO VOID AND THEN BACK TO BED. CALL LIGHT IN REACH. WILL CONT TO MONITOR.
--- NOTE | 2017-10-30 02:30 | NUR ---
PATIENT UP TO THE BSC TO VOID AND THEN BACK TO BED. MEDICATED FOR LEFT HIP PAIN WITH LORTAB 5/325MG PO FOR 7/10 PAIN SCALE. SAFETY PRECAUTIONS REINFORCED.CALL LIGHT IN REACH. WILL CONT TO MONITOR.
--- NOTE | 2017-10-30 03:53 | NUR ---
PATIENT INCONT OF URINE-ASSISTED WITH BATH AND LINENS CHANGED. CALL LIGHT IN REACH. WILL CONT TO MONITOR.
[2017-10-30 04:37] VITALS: BP 106/66
[2017-10-30 04:44] LABS: HEMATOCRIT 26.7 % (37.0-47.0); HEMOGLOBIN 8.8 g/dl (12.0-16.0); IMMATURE GRANULOCYTES 0.7 % (0.0-1.0); MEAN CELL VOLUME 95.4 fL CALC (80.0-100.0); MEAN CORPUSCULAR HGB 31.4 pG CALC (26.0-32.0); NEUT# 4.09 thou/uL (2.00-7.15); RED BLOOD COUNT 2.8 mill/uL (4.20-5.60); RED CELL DISTRI WIDTH 15.3 % (11.5-15.5)
[2017-10-30 05:01] LABS: ANION GAP 11 (6-22 (CALC)); BUN 14 mg/dL (8-23); BUN/CREATININE RATIO 27 (12-20 (CALC)); CARBON DIOXIDE 29 mmol/l (22-30); CHLORIDE 94 mmol/l (95-108); CREATININE 0.5 mg/dL (0.5-1.0); GFR > 60 ML/MIN (>=60 (CALC)); GFR FOR AFR.AMER. > 60 ML/MIN (>=60 (CALC)); POTASSIUM 4.3 mmol/l (3.5-5.1); SODIUM 129 mmol/l (137-146)
--- NOTE | 2017-10-30 07:00 | NUR ---
RECEIVED BEDSIDE REPORT FROM DAVID CHILDS. RESTING IN SEMI FOWLERS WITH EYES CLOSED, AWAKENS EASILY. RESPS EVEN AND UNLABORED ON ROOM AIR. VOICES NO NEEDS AT THIS TIME. PLAN OF CARE DISCUSSED. SAFETY PRECAUTIONS REINFORCED. BED IN LOWEST POSITION WITH WHEELS LOCKED. CALL LIGHT WITHIN REACH. ENCOURAGED PT TO CALL FOR ANY NEEDS.
[2017-10-30 07:25] VITALS: BP 131/55
[2017-10-30 07:57] VITALS: BP 131/55
--- NOTE | 2017-10-30 08:00 | NUR ---
IN HIGH FOWLERS EATING BREAKFAST, RESPS EVEN AND UNLABORED ON ROOM AIR. VISITOR AT BEDSIDE. MEDICATED WITH LORTAB PO FOR C/O 8/10 LEFT HIP PAIN. CALL LIGHT WITHIN REACH. WILL CONTINUE TO MONITOR.
--- NOTE | 2017-10-30 12:02 | NUR ---
IN HIGH FOWLERS EATING LUNCH. RESPS EVEN AND UNLABORED ON ROOM AIR. VOICES NO NEEDS AT THIS TIME. CALL LIGHT WITHIN REACH. WILL CONTINUE TO MONITOR.
--- NOTE | 2017-10-30 12:33 | NUR ---
IV site discontinued, cath intact. No edema , no redness, voices no discomfort.
--- NOTE | 2017-10-30 13:30 | NUR ---
Discharge instructions given. Patient verbalizes understanding of same. Discharged in stable condition via Wheelchair to Home with family. All belongings sent with pt.
[2017-10-30] MEDS ORDERED: CIPROFLOXACIN250 MG PO (23:31)
== END 2017-10-30 13:30 | DRG 536 ==
LOC: ED 12:17 → ED-I 13:39 → ED 15:16 → MS2 15:17
PROVIDERS: Emergency Medicine; Internal Medicine; Nurse Practitioner; Nurse Practitioner Family; ADMIT Internal Medicine; ATTEND Internal Medicine
PROC: 0T9B70Z Drainage of Bladder with Drainage Device, Via Natural or Artificial Opening (ICD-10-PCS; principal; 2017-10-26)
DX: S72.122A Displaced fracture of lesser trochanter of left femur, initial encounter for closed fracture (principal); I48.2 Chronic atrial fibrillation; E87.1 Hypo-osmolality and hyponatremia; D64.9 Anemia, unspecified; M97.02XA Periprosthetic fracture around internal prosthetic left hip joint, initial encounter; N39.0 Urinary tract infection, site not specified; T83.511A Infection and inflammatory reaction due to indwelling urethral catheter, initial encounter; I10 Essential (primary) hypertension; F32.9 Major depressive disorder, single episode, unspecified; F41.9 Anxiety disorder, unspecified; F17.210 Nicotine dependence, cigarettes, uncomplicated; B96.4 Proteus (mirabilis) (morganii) as the cause of diseases classified elsewhere; X58.XXXA Exposure to other specified factors, initial encounter; Y84.6 Urinary catheterization as the cause of abnormal reaction of the patient, or of later complication, without mention of misadventure at the time of the procedure; Z79.01 Long term (current) use of anticoagulants

== ENCOUNTER 2017-12-24 22:22 | Emergency (ER) | payer MEDICARE, OTHER ==
[~2017-12-24] VITALS: Ht 157.5 cm; Wt 52.0 kg
[~2017-12-24 22:22] MED LIST changes: +BUPROPION300 MG PO; +CALCI23 PO; +CIPROFLOXACIN250 MG PO; +DOXYCYCLINE100 MG; +HYDROCODONE/ACE1 TAB PO; +IRON45 MG; +LIDOCAINE51 TOP; +MAGNESIUM 400 M1 TAB PO; +NAPROXEN250 MG PO; +ROPINIROLE1 MG PO; +XARELTO10 MG PO
[2017-12-24 23:12] LABS: HEMATOCRIT 27.2 % (37.0-47.0); IMMATURE GRANULOCYTES 0.4 % (0.0-1.0); MEAN CORPUSCULAR HGB 29.4 pG CALC (26.0-32.0); MEAN CORPUSCULAR HGB CONC 33.1 g/L CALC (32.0-36.0); NEUT# 3.2 thou/uL (2.00-7.15); RED BLOOD COUNT 3.06 mill/uL (4.20-5.60); RED CELL DISTRI WIDTH 14.8 % (11.5-15.5)
[2017-12-24 23:14] LABS: MEAN CELL VOLUME 88.9 fL CALC (80.0-100.0)
[2017-12-24 23:22] LABS: ALKALINE PHOSPHATASE 113 u/l (38-126); ANION GAP 10 (6-22 (CALC)); BILIRUBIN, TOTAL 0.1 mg/dL (0.0-1.4); BUN 13 mg/dL (8-23); BUN/CREATININE RATIO 25 (12-20 (CALC)); CARBON DIOXIDE 24 mmol/l (22-30); CHLORIDE 96 mmol/l (95-108); CREATININE 0.5 mg/dL (0.5-1.0); GFR > 60 ML/MIN (>=60 (CALC)); GFR FOR AFR.AMER. > 60 ML/MIN (>=60 (CALC)); POTASSIUM 4.1 mmol/l (3.5-5.1); SGOT/AST 15 u/l (9-36); SGPT/ALT 32 u/l (11-66); SODIUM 126 mmol/l (137-146)
[2017-12-24 23:25] LABS: ALBUMIN 3.6 g/dL (3.2-5.0); TOTAL PROTEIN 6.2 g/dL (6.3-8.2)
[2017-12-25] MEDS ORDERED: NAPROSYN500 MG PO (00:09)
[2017-12-25] MEDS ORDERED: FLEXERIL PO (00:09)
[2017-12-25 07:33] VITALS: BP 176/95
== END 2017-12-25 08:25 | disposition home or self-care (01) ==
LOC: ED 22:22
PROVIDERS: Emergency Medicine
DX: E87.1 Hypo-osmolality and hyponatremia (principal); M79.605 Pain in left leg; M79.604 Pain in right leg; Z98.1 Arthrodesis status; I10 Essential (primary) hypertension; G89.29 Other chronic pain; Z96.642 Presence of left artificial hip joint